=== PATIENT | female | born 1980 | race Caucasian/White ===

== ENCOUNTER 2017-09-07 20:03 | Emergency (ER) | payer OTHER ==
[~2017-09-07] VITALS: Ht 175.3 cm; Wt 70.0 kg
[2017-09-07] MEDS ORDERED: LORA1TAB12 PO (20:16)
[2017-09-07] MEDS ORDERED: RANI150T PO (20:16)
[2017-09-07 20:23] VITALS: BP 121/80; PULSE 149; RESP 20; TEMP 98.1; O2SAT 98
[2017-09-07 21:08] LABS: BILIRUBIN, URINE NEG (NEG); BLOOD, URINE MOD (NEG); GLUCOSE,URINE NEG (NEG); HYALINE CAST, URINE 12 /lpf (RARE); KETONE, URINE TRACE mg/dL (NEG); MUCUS URINE FEW /lpf (OCC); NITRITE,URINE NEG (NEG); SQUAMOUS EPITHELIAL CELL URINE 2 /hpf (0-5); URINE COLOR YELLOW (YELLW/STRAW); URINE LEUKOCYTE ESTERASE NEG (NEG)
[2017-09-07 21:09] LABS: BASOPHIL # 0.1 TH/MM3 (0-0.2); EOSINOPHIL % 0.4 % (0.0-4.0); HEMATOCRIT 44.1 % (35.0-46.0); LYMPHOCYTE # 2.4 TH/MM3 (1.0-4.8); MEAN CELL VOLUME 91.7 FL (80.0-100.0); MEAN CORPUSCULAR HEMOGLOBIN 31.2 PG (27.0-34.0); MONO % 3.8 % (0.0-8.0); MONOCYTE # 0.3 TH/MM3 (0-0.9); NEUT % 63.8 % (16.0-70.0); PLATELET COUNT 270 TH/MM3 (150-450); RED BLOOD COUNT 4.81 MIL/MM3 (4.00-5.30); RED CELL DISTRIBUTION WIDTH 13.9 % (11.6-17.2); WHITE BLOOD COUNT 7.9 TH/MM3 (4.0-11.0)
[2017-09-07 21:31] LABS: ALBUMIN 3.7 GM/DL (3.4-5.0); AST (GOT) 31 U/L (15-37); BICARBONATE 23.4 MEQ/L (21.0-32.0); BLOOD UREA NITROGEN 10 MG/DL (7-18); CALCIUM 8.1 MG/DL (8.5-10.1); CHLORIDE 101 MEQ/L (98-107); GLOMERULAR FILTRATION RATE 112 ML/MIN (>89); GLUCOSE,RANDOM 114 MG/DL (74-106); SODIUM (NA) 140 MEQ/L (136-145)
[2017-09-07 21:32] LABS: ALT (GPT) 31 U/L (10-53)
[2017-09-07 21:34] LABS: ALKALINE PHOSPHATASE 76 U/L (45-117); TOTAL BILIRUBIN ADULT 0.3 MG/DL (0.2-1.0); TOTAL PROTEIN 7.7 GM/DL (6.4-8.2)
[2017-09-07 21:36] LABS: ACETAMINOPHEN LESS THAN 2.0 MCG/ML (10.0-30.0)
[2017-09-07 22:22] VITALS: BP 122/83; PULSE 124; RESP 20; O2SAT 97
--- NOTE | 2017-09-07 22:23 | PD ---
HPI Chief Complaint: Psychiatric Symptoms Time Seen by Provider: 20:35 Travel History International Travel<30 days: No Contact w/Intl Traveler<30days: No Traveled to known affect area: No History of Present Illness HPI 37-year-old white female presents to emergency department under [place] act by PD. Patient has a history of anxiety and alcohol abuse. She states that she's having relationship issues with her significant other. The patient is been feeling increasingly depressed and has had suicidal thoughts. The patient had made statements that she was going to shoot herself with a 9 mm. Patient does admit to having a gun at home. She denies any toxic ingestions. She admits to having alcohol use. She does smoke marijuana on occasion. No other drugs. She does smoke cigarettes on occasion. Patient denies any problems at this time. She does state that she's feeling very anxious and would like to have something for anxiety. The patient does not have a primary care doctor or a psychiatrist. She typically goes to [facility]. She has been prescribed Xanax. She also takes medicine for reflux. No toxic ingestions. [facility] Past Medical History Narrative Medical Anxiety, GERD Anxiety: Yes Diminished Hearing: No GERD: Yes Immunizations Current: No Tetanus Vaccination: Unknown Influenza Vaccination: No ?: Unknown Past Surgical History Surgical History: No Previous Surgery Social History Alcohol Use: Yes Tobacco Use: Yes Substance Use: Yes Allergies-Medications (Allergen,Severity, Reaction): Coded Allergies: No Known Allergies (Unverified , 09/07/17) Reported Meds & Prescriptions Reported Meds & Active Scripts Active Reported Lorazepam 1 Mg Tab 1 Mg PO Q8H PRN Ranitidine (Ranitidine HCl) 150 Mg Tab 150 Mg PO BID Review of Systems General / Constitutional: No: Fever Eyes: No: Visual changes HENT: No: Headaches Cardiovascular: No: Chest Pain or Discomfort Respiratory: No: Shortness of Breath Gastrointestinal: No: Abdominal Pain Genitourinary: No: Dysuria Musculoskeletal: No: Pain Skin: No Rash Neurologic: No: Weakness Psychiatric: Positive: Anxiety, Depression, Suicidal Ideations, Mood Disorder, Substance Abuse, No: Disorder of Thought, Homicidal Ideation Endocrine: No: Polydipsia Hematologic/Lymphatic: No: Easy Bruising Physical Exam Narrative GENERAL: Well-nourished, well-developed patient. Smells of EtOH. SKIN: Warm and dry. HEAD: Normocephalic and atraumatic. EYES: No scleral icterus. No injection or drainage. ENT: No nasal drainage noted. Mucous membranes pink. Airway patent. NECK: Supple, trachea midline. Moves head freely without obvious discomfort. CARDIOVASCULAR: Regular rate and rhythm without murmurs, gallops, or rubs. RESPIRATORY: Breath sounds equal bilaterally. No accessory muscle use. GASTROINTESTINAL: Abdomen soft, non-tender, nondistended. EXTREMITIES: No cyanosis or edema. BACK: Nontender without obvious deformity. No CVA tenderness. NEURO: Patient is alert and oriented. no sensorimotor deficits. Nonfocal. Normal speech. PSYCH: No delusions. No auditory or visual hallucinations. Data Data Last Documented VS Vital Signs Date Time Temp Pulse Resp B/P (MAP) Pulse Ox O2 Delivery O2 Flow Rate FiO2 09/07/17 22:22 124 20 122/83 (96) 97 Room Air 09/07/17 20:23 98.1 Orders Orders Complete Blood Count With Diff (09/07/17 20:35) Comprehensive Metabolic Panel (09/07/17 20:35) Urinalysis - C+S If Indicated (09/07/17 20:35) Ed Urine Pregnancytest Poc (09/07/17 20:35) Iv Access Insert/Monitor (09/07/17 20:35) Psych Screen (09/07/17 20:35) Drug Screen, Random Urine (09/07/17 20:35) Salicylates (Aspirin) (09/07/17 20:35) Tylenol (Acetaminophen) (09/07/17 20:35) Alcohol (Ethanol) (09/07/17 22:24) Sodium Chlor 0.9% 1000 Ml Inj (Ns 1000 M (09/07/17 22:30) Lorazepam Inj (Ativan Inj) (09/07/17 22:30) Lorazepam Inj (Ativan Inj) (09/07/17 23:45) Sodium Chlor 0.9% 1000 Ml Inj (Ns 1000 M (09/07/17 23:45) Alcohol Withdrawal Asmt-Ciwa ONCE (09/07/17 23:48) Flumazenil Inj (Romazicon Inj) (09/08/17 00:00) Lorazepam (Ativan) (09/08/17 00:00) Lorazepam Inj (Ativan Inj) (09/08/17 00:00) Lorazepam (Ativan) (09/08/17 00:00) Lorazepam Inj (Ativan Inj) (09/08/17 00:00) Lorazepam Inj (Ativan Inj) (09/08/17 00:00) Lorazepam Inj (Ativan Inj) (09/08/17 00:00) Labs Laboratory Tests Test 09/07/17 20:55 09/07/17 22:50 White Blood Count 7.9 TH/MM3 Red Blood Count 4.81 MIL/MM3 Hemoglobin 15.0 GM/DL Hematocrit 44.1 % Mean Corpuscular Volume 91.7 FL Mean Corpuscular Hemoglobin 31.2 PG Mean Corpuscular Hemoglobin Concent 34.0 % Red Cell Distribution Width 13.9 % Platelet Count 270 TH/MM3 Mean Platelet Volume 9.0 FL Neutrophils (%) (Auto) 63.8 % Lymphocytes (%) (Auto) 31.0 % Monocytes (%) (Auto) 3.8 % Eosinophils (%) (Auto) 0.4 % Basophils (%) (Auto) 1.0 % Neutrophils # (Auto) 5.0 TH/MM3 Lymphocytes # (Auto) 2.4 TH/MM3 Monocytes # (Auto) 0.3 TH/MM3 Eosinophils # (Auto) 0.0 TH/MM3 Basophils # (Auto) 0.1 TH/MM3 CBC Comment DIFF FINAL Differential Comment Urine Color YELLOW Urine Turbidity HAZY Urine pH 5.0 Urine Specific [place] 1.021 Urine Protein 30 mg/dL Urine Glucose (UA) NEG mg/dL Urine Ketones TRACE mg/dL Urine Occult Blood MOD Urine Nitrite NEG Urine Bilirubin NEG Urine Urobilinogen LESS THAN 2.0 MG/DL Urine Leukocyte Esterase NEG Urine RBC LESS THAN 1 /hpf Urine WBC 1 /hpf Urine Squamous Epithelial Cells 2 /hpf Urine Hyaline Casts 12 /lpf Urine Mucus FEW /lpf Microscopic Urinalysis Comment CULT NOT INDICATED Blood Urea Nitrogen 10 MG/DL Creatinine 0.60 MG/DL Random Glucose 114 MG/DL Total Protein 7.7 GM/DL Albumin 3.7 GM/DL Calcium Level 8.1 MG/DL Alkaline Phosphatase 76 U/L Aspartate Amino Transf (AST/SGOT) 31 U/L Alanine Aminotransferase (ALT/SGPT) 31 U/L Total Bilirubin 0.3 MG/DL Sodium Level 140 MEQ/L Potassium Level 3.7 MEQ/L Chloride Level 101 MEQ/L Carbon Dioxide Level 23.4 MEQ/L Anion Gap 16 MEQ/L Estimat Glomerular Filtration Rate 112 ML/MIN Salicylates Level LESS THAN 1.7 MG/DL Urine Opiates Screen NEG Acetaminophen Level LESS THAN 2.0 MCG/ML Urine Barbiturates Screen NEG Urine Amphetamines Screen NEG Urine Benzodiazepines Screen POS Urine Cocaine Screen NEG Urine Cannabinoids Screen NEG Ethyl Alcohol Level 161 MG/DL MDM Medical Decision Making Medical Screen Exam Complete: Yes Emergency Medical Condition: Yes Medical Record Reviewed: Yes Interpretation(s) Laboratory Tests Test 09/07/17 20:55 09/07/17 22:50 White Blood Count 7.9 TH/MM3 Red Blood Count 4.81 MIL/MM3 Hemoglobin 15.0 GM/DL Hematocrit 44.1 % Mean Corpuscular Volume 91.7 FL Mean Corpuscular Hemoglobin 31.2 PG Mean Corpuscular Hemoglobin Concent 34.0 % Red Cell Distribution Width 13.9 % Platelet Count 270 TH/MM3 Mean Platelet Volume 9.0 FL Neutrophils (%) (Auto) 63.8 % Lymphocytes (%) (Auto) 31.0 % Monocytes (%) (Auto) 3.8 % Eosinophils (%) (Auto) 0.4 % Basophils (%) (Auto) 1.0 % Neutrophils # (Auto) 5.0 TH/MM3 Lymphocytes # (Auto) 2.4 TH/MM3 Monocytes # (Auto) 0.3 TH/MM3 Eosinophils # (Auto) 0.0 TH/MM3 Basophils # (Auto) 0.1 TH/MM3 CBC Comment DIFF FINAL Differential Comment Urine Color YELLOW Urine Turbidity HAZY Urine pH 5.0 Urine Specific [place] 1.021 Urine Protein 30 mg/dL Urine Glucose (UA) NEG mg/dL Urine Ketones TRACE mg/dL Urine Occult Blood MOD Urine Nitrite NEG Urine Bilirubin NEG Urine Urobilinogen LESS THAN 2.0 MG/DL Urine Leukocyte Esterase NEG Urine RBC LESS THAN 1 /hpf Urine WBC 1 /hpf Urine Squamous Epithelial Cells 2 /hpf Urine Hyaline Casts 12 /lpf Urine Mucus FEW /lpf Microscopic Urinalysis Comment CULT NOT INDICATED Blood Urea Nitrogen 10 MG/DL Creatinine 0.60 MG/DL Random Glucose 114 MG/DL Total Protein 7.7 GM/DL Albumin 3.7 GM/DL Calcium Level 8.1 MG/DL Alkaline Phosphatase 76 U/L Aspartate Amino Transf (AST/SGOT) 31 U/L Alanine Aminotransferase (ALT/SGPT) 31 U/L Total Bilirubin 0.3 MG/DL Sodium Level 140 MEQ/L Potassium Level 3.7 MEQ/L Chloride Level 101 MEQ/L Carbon Dioxide Level 23.4 MEQ/L Anion Gap 16 MEQ/L Estimat Glomerular Filtration Rate 112 ML/MIN Salicylates Level LESS THAN 1.7 MG/DL Urine Opiates Screen NEG Acetaminophen Level LESS THAN 2.0 MCG/ML Urine Barbiturates Screen NEG Urine Amphetamines Screen NEG Urine Benzodiazepines Screen POS Urine Cocaine Screen NEG Urine Cannabinoids Screen NEG Ethyl Alcohol Level 161 MG/DL Differential Diagnosis MDM: High Differential diagnoses: Schizophrenia, schizoaffective disorder, bipolar, anxiety, depression, adjustment reaction, mood disorder NOS, ODD, depressive disorder NOS, dementia, dementia with agitation, psychosis NOS, substance induced mood disorder, DMDD, Asperger syndrome, infection,electrolyte abnormality, malingering. Narrative Course Mental health screening discussed with the patient. Psychiatric screen ordered. The patient is been medically cleared. The patient has had a total of 2 L normal saline, 2 mg of Ativan IV. This is medical clearance for psychiatric admission, alcohol intoxication, alcoholism Diagnosis Primary Impression: Medical clearance for psychiatric admission Additional Impressions: Alcohol intoxication Qualified Codes: F10.920 - Alcohol use, unspecified with intoxication, uncomplicated Alcoholism Condition: Stable Don Garcia Sep 07, 2017 22:23
[2017-09-07] MEDS ORDERED: LORazepam 2 MG/ML VIAL IV PUSH ONE ×2 (22:30→23:45)
[2017-09-07] MEDS ORDERED: SODIUM CHLOR 0.9% 1000 ML INJ 1,000 ML IV ONE ×2 (22:30→23:45)
[2017-09-08] MEDS ORDERED: LORazepam 1 MG TAB PO PRN
[2017-09-08] MEDS ORDERED: FLUMAZENIL 0.5 MG/5 ML VIAL IV PUSH PRN
[2017-09-08] MEDS ORDERED: LORazepam 2 MG TAB PO PRN
[2017-09-08] MEDS ORDERED: LORazepam 2 MG/ML VIAL IV PUSH PRN ×4
[2017-09-08 01:23] VITALS: BP 128/84; PULSE 108; RESP 18; O2SAT 99
[2017-09-08 01:56] VITALS: BP 126/83; PULSE 134; RESP 16; TEMP 97.3; O2SAT 95
== END 2017-09-08 04:57 ==
LOC: NEPD 20:03 → NEPJ 09-08 04:57
DX: Z04.6 Encounter for general psychiatric examination, requested by authority (principal); F10.229 Alcohol dependence with intoxication, unspecified; F41.9 Anxiety disorder, unspecified; R45.851 Suicidal ideations; K21.9 Gastro-esophageal reflux disease without esophagitis; F12.90 Cannabis use, unspecified, uncomplicated; Z72.0 Tobacco use
CPT/HCPCS: 80053; 80307; 81001; 84703; 85025; 96361; 96374; 96376; 99285; J2060; J7030